=== PATIENT | female | born 1975 | race Caucasian/White ===

== ENCOUNTER 2017-06-24 19:31 | Emergency (ER) | payer MEDICARE, MEDICAID ==
--- NOTE | ~2017-06-24 | ER ---
PATIENT'S NAME: FLAVIA CHAUDHRY [facility] AGE: 41 Y [address] ROOM: [place] [address] LOCATION: [facility] ADMIT DATE: 06/24/2017 ER/Outpatient Report DISCHARGE DATE: 06/24/2017 FAMILY PHYSICIAN: Jonelle Santiago MD ATTENDING PHYSICIAN: Jez Maki Admission date and time documented in the medical record. I saw the patient at 1942 hours. CHIEF COMPLAINT: Headache. HISTORY OF PRESENT ILLNESS: The patient is a 41-year-old female, who has had a headache for about 24 hours. It started in the occipital area of her head. Now, it has moved into the frontal forehead behind the eyes. It is accompanied with nausea, blurred vision. No vomiting. No neuro changes. The patient does have a history of headaches. She was worked up in [place] this afternoon with lab studies, given Nubain. Presented here because she wants to have an MRI scan of the brain. The patient does have a baclofen pump and also a nerve stimulator in her back. No recent coughs, colds, flus, fever, chills, or sweats. No chest pain, shortness of breath. No abdominal pain. No lightheadedness or dizziness. No acute neuro changes. HOME MEDICATIONS: See attached medication list. ALLERGIES: CODEINE, PERCOCET, LAVENDER. SOCIAL HISTORY: The patient smokes a couple of cigarettes a day, nondrinker. SIGNIFICANT PAST MEDICAL HISTORY: Headaches, multiple sclerosis, involuntary movements, bipolar disorder with anxiety, depression, posttraumatic stress disorder, asthma, gastroesophageal reflux, degenerative osteoarthritis, tobacco abuse, fibromyalgia, obstructive sleep apnea. OPERATIONS: Baclofen pump placement, removal and then replacement; lumbar puncture; cholecystectomy; hysterectomy; lap band procedure; herniorrhaphy; port placement; nerve stimulator placement. REVIEW OF SYSTEMS: PATIENT'S NAME: FLAVIA CHAUDHRY [facility] AGE: 41 Y [address] ROOM: [place] [address] LOCATION: [facility] ADMIT DATE: 06/24/2017 ER/Outpatient Report DISCHARGE DATE: 06/24/2017 FAMILY PHYSICIAN: Jonelle Santiago MD ATTENDING PHYSICIAN: Jez Maki All systems reviewed by me are negative with the exception of those discussed in the history of present illness. PHYSICAL EXAMINATION: VITAL SIGNS: Temperature 98 tympanic, pulse 77 and regular, respirations 16, blood pressure 145/69, O2 saturation on room air is 91%. HEAD: Normocephalic. No abrasion, contusion, laceration, swelling of the scalp or face. EYES: Extraocular muscles intact. PERRL. Sclerae and conjunctivae clear, nonicteric. Fundi showed crisp disc margins and vessels. I do not appreciate any edema. EARS: Clear TMs bilaterally. NOSE AND THROAT: Clear. NECK: No nuchal rigidity. No thyromegaly or cervical adenopathy. Range of motion full. No tenderness. SPINE: Negative. LUNGS: Clear. Good air flow. No rales, rhonchi, or wheezes. HEART: Regular. Pulses are palpable. No chest wall or ribcage pain to palpation. ABDOMEN: Soft, nontender. Good bowel tones. EXTREMITIES: Moves all 4 extremities. No peripheral edema, cyanosis, or deformity. NEURO: Cranial nerves appear to be intact. No lateralizing weakness, numbness, tingling, or loss of function. The patient is awake, cooperative, alert, responsive, oriented. SKIN: Clear. EMERGENCY DEPARTMENT COURSE: We did check with Radiology about doing an MRI scan of the brain with baclofen pump and nerve stimulator. The patient needs physician, who placed the baclofen pump, okay an MRI scan. That physician is unavailable at this time, so we would not be able to do the MRI scan of the brain per our protocol. This was discussed with the patient. The patient will need to follow up with the physician, who placed her baclofen pump, the first of this coming week to see if he would okay MRI scan. We did start an IV. Gave the patient 1 L normal saline fluids here in the emergency department. Also, gave the patient Benadryl 50 mg followed in 10 minutes by Compazine 10 mg, and Nubain 10 mg IV for headache. IMPRESSION: 1. Headache. 2. Bipolar disorder with anxiety, depression. 3. Posttraumatic stress disorder. 4. Fibromyalgia. 5. Obstructive sleep apnea. PATIENT'S NAME: FLAVIA CHAUDHRY [facility] AGE: 41 Y [address] ROOM: [place] [address] LOCATION: [facility] ADMIT DATE: 06/24/2017 ER/Outpatient Report DISCHARGE DATE: 06/24/2017 FAMILY PHYSICIAN: Jonelle Santiago MD ATTENDING PHYSICIAN: Jez Maki 6. Multiple sclerosis. PLAN: The patient discharged from the emergency room. Observation. Activity as tolerated. Continue present home medications and care, rest. Check with physician, who placed baclofen about scheduling for an MRI of the brain in first of next week. Follow up with personal physician as needed. I did discuss all this with the patient. She appears to understand. MD KATTY HAYNES/modl /[id number] d: [birth year]/172 t: 06/25/17 1820, OUTPATIENT REPORT
== END 2017-06-24 21:07 | disposition disaster alternative care site (69) ==
LOC: GMED 19:31
DX: R51 Headache (principal); F31.9 Bipolar disorder, unspecified; F41.9 Anxiety disorder, unspecified; F43.10 Post-traumatic stress disorder, unspecified; G47.33 Obstructive sleep apnea (adult) (pediatric); G35 Multiple sclerosis; M79.7 Fibromyalgia; K21.9 Gastro-esophageal reflux disease without esophagitis; J45.909 Unspecified asthma, uncomplicated; M19.90 Unspecified osteoarthritis, unspecified site; F17.210 Nicotine dependence, cigarettes, uncomplicated; Z88.5 Allergy status to narcotic agent; Z91.09 Other allergy status, other than to drugs and biological substances; Z97.8 Presence of other specified devices; Z79.891 Long term (current) use of opiate analgesic; Z79.1 Long term (current) use of non-steroidal anti-inflammatories (NSAID); Z79.890 Hormone replacement therapy; Z79.899 Other long term (current) drug therapy; Z98.890 Other specified postprocedural states
CPT/HCPCS: J0780; J1200; J2300; J7040